=== PATIENT | male | born 1950 | race Hispanic/Latino ===

== ENCOUNTER → 2017-12-21 | Outpatient (CLI) | payer OTHER ==
[~2017-12-21] MED LIST: APIX5TAB PO; ATOR40TA69 PO; BENA40TA3 PO; INSU100V IV; INSU100V12 SQ; ISOS30TA6 PO; LEVO300T8 PO; NITR0.4T50 SL; ONDA4TAB10 PO; PANT40TA PO; RANI-477 PO
== END | disposition home or self-care (01) ==
LOC: RAH 12:55
PROVIDERS: ATTEND Family Medicine
DX: N18.2 Chronic kidney disease, stage 2 (mild) (principal); N40.0 Benign prostatic hyperplasia without lower urinary tract symptoms
CPT/HCPCS: 76770

== ENCOUNTER 2018-03-22 16:53 | Observation (INO) | payer OTHER, MEDICARE ==
[~2018-03-22] VITALS: Ht 180.3 cm; Wt 78.9 kg
[~2018-03-22 16:53] MED LIST changes: -BENA40TA3 PO; +BENA40TA9 PO; -ONDA4TAB10 PO; -RANI-477 PO
[2018-03-22] MEDS ORDERED: CLONIDINE HCL 0.1 MG TABLET PO PRN (17:30)
[2018-03-22] MEDS ORDERED: ONDANSETRON ODT 4 MG TAB SL PRN (17:30)
[2018-03-22] MEDS ORDERED: ONDANSETRON HCL 4 MG/2 ML VIAL IVP PRN (17:30)
[2018-03-22] MEDS: DEXTROSE 5 %-0.45 % NACL 1,000 ML IV SCH (17:30)
[2018-03-22] MEDS ORDERED: FAMOTIDINE 20MG TAB 20 MG TAB ONE (17:31)
[2018-03-22] MEDS ORDERED: DEXTROSE 5 %-0.45 % NACL 1,000 ML IV ONE (17:33)
[2018-03-22 17:48] LABS: CREATININE 1.7 mg/dL (0.5-1.5); POTASSIUM 3.9 mmol/L (3.5-5.1)
[2018-03-22 17:52] LABS: ALBUMIN 4.2 g/dL (3.5-5.0); BILIRUBIN,DIRECT 0.1 mg/dL (0.0-0.3); BILIRUBIN,TOTAL 0.6 mg/dL (0.2-1.0); TOTAL PROTEIN, SERUM 7.9 g/dL (6.0-8.3)
[2018-03-22] MEDS ORDERED: IOHEXOL-350 75 ML VIAL IV ONE (18:09)
[2018-03-22] MEDS ORDERED: DIATR MEGLU/DIATRIZOATE SODIUM 30 ML BOTTLE ONE (18:15)
[2018-03-22 19:19] LABS: BASOPHILS % (AUTO) 0.2 % (0.0-5.0); EOSINOPHILS % (AUTO) 0.4 % (0.0-8.0); HEMATOCRIT 44.1 % (42-54); LYMPHOCYTES % (AUTO) 1.9 % (21.0-51.0); MEAN CORPUSCULAR HEMOGLOBIN 29.5 pg (27.0-33.0); MEAN CORPUSCULAR HGB CONC 33.7 g/dL (32.0-36.0); MEAN CORPUSCULAR VOLUME 87.5 fL (79-99); MONOCYTES % (AUTO) 5.7 % (3.0-13.0); NEUTROPHILS % (AUTO) 91.8 % (40.0-77.0); NUCLEATED RED BLOOD CELLS 0.1 % (0.0-0.19); PLATELET COUNT (AUTO) 237 K/uL (130-400); RED BLOOD CELL COUNT(AUTO) 5.04 MIL/uL (4.50-6.20); RED CELL DISTRIBUTION WIDTH 14.5 % (11.0-15.5)
[2018-03-22] MEDS ORDERED: INSULIN GLARGINE 100 UNITS/ML 10 ML VIAL SQ ONE (20:47)
[2018-03-22] MEDS: FAMOTIDINE 20MG TAB 20 MG TAB PO SCH (21:00)
[2018-03-22 21:15] VITALS: BP 148/84
[2018-03-23] VITALS: BP 122/74
[2018-03-23] MEDS: DEXTROSE 5 %-0.45 % NACL 1,000 ML IV SCH (00:47)
[2018-03-23 04:48] LABS: HEMATOCRIT 36.5 % (42-54); MEAN CORPUSCULAR HEMOGLOBIN 29.4 pg (27.0-33.0); MEAN CORPUSCULAR VOLUME 86.6 fL (79-99); PLATELET COUNT (AUTO) 192 K/uL (130-400); RED BLOOD CELL COUNT(AUTO) 4.22 MIL/uL (4.50-6.20); WHITE BLOOD COUNT (AUTO) 6.6 K/uL (4.8-10.8)
[2018-03-23 05:06] LABS: ALBUMIN 3.3 g/dL (3.5-5.0); BILIRUBIN,DIRECT 0.1 mg/dL (0.0-0.3); BILIRUBIN,TOTAL 0.5 mg/dL (0.2-1.0); CREATININE 1.5 mg/dL (0.5-1.5); POTASSIUM 3.3 mmol/L (3.5-5.1); TOTAL PROTEIN, SERUM 6.3 g/dL (6.0-8.3)
[2018-03-23] MEDS ORDERED: ONDA4TAB10 PO (07:15)
[2018-03-23] MEDS ORDERED: RANI-477 PO (07:15)
[2018-03-23 08:53] VITALS: BP 124/77
[2018-03-23] MEDS ORDERED: INSULIN GLARGINE 100 UNITS/ML 10 ML VIAL SQ SCH (09:00)
[2018-03-23] MEDS ORDERED: PANTOPRAZOLE SODIUM 40 MG TABLET.DR PO SCH (09:00)
[2018-03-23] MEDS: FAMOTIDINE 20MG TAB 20 MG TAB PO SCH (09:00)
[2018-03-23 11:49] VITALS: BP 139/93
[2018-03-23 16:55] VITALS: BP 160/90
== END 2018-03-23 18:19 | disposition home or self-care (01) ==
LOC: EDH 16:53 → EDHIP 17:18 → 4BH 21:15
PROVIDERS: ADMIT Internal Medicine; ATTEND Internal Medicine
DX: E86.0 Dehydration (principal); E11.9 Type 2 diabetes mellitus without complications; E78.5 Hyperlipidemia, unspecified; I10 Essential (primary) hypertension; I25.10 Atherosclerotic heart disease of native coronary artery without angina pectoris; Z85.72 Personal history of non-Hodgkin lymphomas
CPT/HCPCS: 36415 ×2; 74176; 80048 ×2; 80076 ×2; 82150; 82948 ×3; 83690; 85025; 85027; 96372; 99285; G0378 ×25; J1815; J7042; Q9963; Q9967

== ENCOUNTER → 2021-04-30 | Outpatient (CLI) | payer OTHER ==
[~2021-04-30] MED LIST changes: -ATOR40TA69 PO; -ISOS30TA6 PO; +ISOS30TA92 PO; +ONDA4TAB10 PO; +RANI-655 PO
== END | disposition home or self-care (01) ==
LOC: RAH 10:19
PROVIDERS: ATTEND Internal Medicine Gastroenterology
DX: R68.81 Early satiety (principal); R11.0 Nausea; R10.9 Unspecified abdominal pain
CPT/HCPCS: 78264; A9541

== ENCOUNTER 2021-12-24 05:52 | Day surgery (SDC) | payer OTHER ==
[2021-12-22 13:34] LABS: BASOPHILS % (AUTO) 0.4 % (0.0-5.0); EOSINOPHILS % (AUTO) 2.5 % (0.0-8.0); HEMATOCRIT 38.8 % (42-54); LYMPHOCYTES % (AUTO) 12.8 % (21.0-51.0); MEAN CORPUSCULAR HEMOGLOBIN 28.1 pg (27.0-33.0); MEAN CORPUSCULAR VOLUME 87.8 fL (79-99); MONOCYTES % (AUTO) 9.9 % (3.0-13.0); NEUTROPHILS % (AUTO) 74.1 % (40.0-77.0); PLATELET COUNT (AUTO) 298 K/uL (130-400); RED BLOOD CELL COUNT(AUTO) 4.42 MIL/uL (4.50-6.20); RED CELL DISTRIBUTION WIDTH 12.9 % (11.0-15.5); WHITE BLOOD COUNT (AUTO) 7.2 K/uL (4.8-10.8)
[2021-12-22 13:46] LABS: APPEARANCE,URINE Clear (CLEAR); BILIRUBIN,URINE Negative (NEGATIVE); COLOR,URINE Yellow (YELLOW); GLUCOSE, URINE (UA) Negative (NEGATIVE); KETONES,URINE Negative (NEGATIVE); LEUKOCYTE ESTERASE ,URINE Negative (NEGATIVE); NITRATE,URINE Negative (NEGATIVE); OCCULT BLOOD,URINE Negative (NEGATIVE); PROTEIN,URINE Negative (NEGATIVE); UROBILINOGEN,URINE 0.2 mg/dL (0.2-1.0)
[2021-12-22 13:54] LABS: INR 1.01 (0.85-1.15)
[2021-12-22 13:55] LABS: PARTIAL THROMBOPLASTIN TIME 29.1 SEC (26.3-35.5)
[2021-12-22 13:58] LABS: CREATININE 1.4 mg/dL (0.5-1.5); POTASSIUM 4.6 mmol/L (3.5-5.1)
[2021-12-22 14:02] LABS: B-TYPE NATRIURETIC PEPTIDE 59 pg/mL (0-100)
[2021-12-23 13:56] VITALS: BP 135/70
[2021-12-24] VITALS (10 sets, daily range): BP systolic 148–166; BP diastolic 72–87
[~2021-12-24] VITALS: Ht 180.3 cm; Wt 79.9 kg
[~2021-12-24 05:52] MED LIST changes: +AEC81 PO; +AMLO-257 PO; -APIX5TAB PO; -BENA40TA9 PO; +BENA40TA92 PO; +BISA5TAB12 PO; +DULA1.5P SQ; +FAMO20TA8 PO; +FOLI0.8T3 PO; +INSU100I15 SQ; -INSU100V IV; -INSU100V12 SQ; -ISOS30TA92 PO; +LEVO200C2 PO; -LEVO300T8 PO; +METO-391 PO; -NITR0.4T50 SL; -ONDA4TAB10 PO; -PANT40TA PO; -RANI-655 PO; +RANO500T2 PO; +ROSU20TA31 PO
[2021-12-24] MEDS ORDERED: 0.9%NACL 1000ML 1,000 ML IV SCH ×2 (06:00→08:30)
[2021-12-24] MEDS ORDERED: DEXTROSE 50%-WATER 50 ML DISP.SYRIN IV ONE (06:25)
[2021-12-24] MEDS ORDERED: NITROGLYCERIN 50MG VIAL ONE (07:11)
[2021-12-24] MEDS ORDERED: IOHEXOL 350 MG/ML 100ML INFUS..BTL IV ONE (07:11)
[2021-12-24] MEDS ORDERED: IOHEXOL-350 50ML VIAL IV ONE (07:11)
[2021-12-24] MEDS ORDERED: LIDOCAINE HCL 400MG/20ML VIAL ONE (07:11)
[2021-12-24] MEDS ORDERED: BIVALIRUDIN 250 MG/VIAL IV ONE (07:11)
[2021-12-24] MEDS ORDERED: HEPARIN 10,000 UNIT/10ML (1,000 UNIT/ML) VIAL ONE (07:11)
[2021-12-24] MEDS ORDERED: FENTANYL CITRATE PF 50 MCG/1 ML 2ML VIAL ONE (07:45)
[2021-12-24] MEDS ORDERED: NITROGLYCERIN 50MG/D5W 250ML 0 BOT ONE (07:49)
[2021-12-24] MEDS ORDERED: LABETALOL 20MG VIAL IV ONE (07:50)
== END 2021-12-24 13:40 | disposition home or self-care (01) ==
LOC: DAH 05:52
PROVIDERS: ATTEND Internal Medicine Cardiovascular Disease
DX: I25.119 Atherosclerotic heart disease of native coronary artery with unspecified angina pectoris (principal); I25.719 Atherosclerosis of autologous vein coronary artery bypass graft(s) with unspecified angina pectoris; I25.82 Chronic total occlusion of coronary artery; I25.5 Ischemic cardiomyopathy; I10 Essential (primary) hypertension; I25.2 Old myocardial infarction; E11.9 Type 2 diabetes mellitus without complications; E78.5 Hyperlipidemia, unspecified; E03.9 Hypothyroidism, unspecified; Z79.82 Long term (current) use of aspirin; Z98.890 Other specified postprocedural states; Z85.72 Personal history of non-Hodgkin lymphomas; Z86.718 Personal history of other venous thrombosis and embolism; Z95.5 Presence of coronary angioplasty implant and graft; Z79.01 Long term (current) use of anticoagulants
CPT/HCPCS: 36415; 71045; 80048; 81003; 82948 ×3; 83880; 85025; 85610; 85730; 93005; 93459; A4215; A4216; A4221; A4222; A4223 ×3; A4606; A4663; C1760; C1894 ×2; J1644; J3010; J3490 ×3; J7030; Q9965 ×2; Q9967 ×2; 99156; 99157; J0583; J7070

== ENCOUNTER 2023-09-29 23:22 | Observation (INO) | payer OTHER ==
[~2023-09-29] VITALS: Ht 180.3 cm; Wt 82.1 kg
[~2023-09-29 23:22] MED LIST changes: +BISA-151 PO; -BISA5TAB12 PO; -METO-391 PO; -RANO500T2 PO; -ROSU20TA31 PO; +ROSU20TA73 PO
[2023-09-30] VITALS (12 sets, daily range): BP systolic 118–188; BP diastolic 66–115; PULSE 53–69; RESP 18–19; O2SAT 96–98
[2023-09-30] MEDS ORDERED: LABETALOL 20MG VIAL IV ONE
[2023-09-30 00:42] LABS: BASOPHILS # (AUTO) 0.04 K/uL (0.00-0.20); BASOPHILS % (AUTO) 1.2 % (0.0-5.0); EOSINOPHILS # (AUTO) 0.19 K/uL (0.00-0.70); EOSINOPHILS % (AUTO) 5.6 % (0.0-8.0); IMMATURE GRANULOCYTE ABSOLUTE 0.02 K/uL (0-1); LYMPHOCYTES # (AUTO) 0.6 K/uL (1.0-4.8); LYMPHOCYTES % (AUTO) 18.1 % (21.0-51.0); MEAN CORPUSCULAR HEMOGLOBIN 30.1 pg (27.0-33.0); MEAN CORPUSCULAR HGB CONC 34.9 g/dL (32.0-36.0); MEAN CORPUSCULAR VOLUME 86.3 fL (79-99); MONOCYTES # (AUTO) 0.3 K/uL (0.1-1.0); MONOCYTES % (AUTO) 7.6 % (3.0-13.0); NEUTROPHILS # (AUTO) 2.3 K/uL (1.8-7.7); NEUTROPHILS % (AUTO) 66.9 % (40.0-77.0); PLATELET COUNT (AUTO) 143 K/uL (130-400); RED BLOOD CELL COUNT(AUTO) 4.52 MIL/uL (4.50-6.20); RED CELL DISTRIBUTION WIDTH 13.6 % (11.0-15.5); WHITE BLOOD COUNT (AUTO) 3.4 K/uL (4.8-10.8)
[2023-09-30 00:54] LABS: INR < 0.93 (0.85-1.15); PROTHROMBIN TIME 10.5 SEC (9.6-11.6)
[2023-09-30 00:55] LABS: PARTIAL THROMBOPLASTIN TIME 29.1 SEC (26.3-35.5)
[2023-09-30 01:28] LABS: CREATININE 1.5 mg/dL (0.5-1.5); POTASSIUM 3.5 mmol/L (3.5-5.1)
[2023-09-30 01:32] LABS: ALBUMIN 3.7 g/dL (3.5-5.0); BILIRUBIN,TOTAL 0.4 mg/dL (0.2-1.0); TOTAL PROTEIN, SERUM 7.6 g/dL (6.0-8.3)
[2023-09-30 01:50] LABS: ADD UA MICROSCOPIC YES; APPEARANCE,URINE CLEAR (CLEAR); BILIRUBIN,URINE NEGATIVE (NEGATIVE); COLOR,URINE COLORLESS (YELLOW); GLUCOSE, URINE (UA) >=1000 mg/dL (NEGATIVE); KETONES,URINE NEGATIVE (NEGATIVE); LEUKOCYTE ESTERASE ,URINE NEGATIVE Leu/uL (NEGATIVE); NITRATE,URINE NEGATIVE (NEGATIVE); OCCULT BLOOD,URINE NEGATIVE (NEGATIVE); PROTEIN,URINE 30 mg/dL (NEGATIVE); UROBILINOGEN,URINE 0.2 mg/dL (0.2-1.0)
[2023-09-30 01:51] LABS: BACTERIA,URINE RARE /HPF (None Seen); RBC,URINE 0-1 /HPF (0-1); WBC,URINE 0-1 /HPF (0-1)
[2023-09-30] MEDS ORDERED: RANO10005 PO (05:19)
[2023-09-30] MEDS ORDERED: TERB250T89 PO (05:19)
[2023-09-30] MEDS ORDERED: FAMO20TA8 PO (05:19)
[2023-09-30] MEDS ORDERED: FINA5TAB41 PO (05:19)
[2023-09-30] MEDS ORDERED: LEVO112C4 PO (05:19)
[2023-09-30] MEDS ORDERED: METF-444 PO (05:19)
[2023-09-30] MEDS ORDERED: METO-409 PO (05:19)
[2023-09-30] MEDS ORDERED: BACL10TA PO (05:19)
[2023-09-30] MEDS ORDERED: ROSU40TA21 PO (05:19)
[2023-09-30] MEDS ORDERED: BACLOFEN 10 MG TABLET PO PRN (05:30)
[2023-09-30] MEDS ORDERED: CLONIDINE HCL 0.1 MG TABLET PO PRN (06:30)
[2023-09-30] MEDS: LEVOTHYROXINE 112 MCG TABLET PO SCH (06:36)
[2023-09-30] MEDS: TERBINAFINE HCL 250 MG TABLET PO SCH (08:36)
[2023-09-30] MEDS: METOPROLOL SUCCINATE 50 MG TAB.SR.24H PO SCH (08:36)
[2023-09-30] MEDS: ASPIRIN 81 MG EC TAB PO SCH (08:37)
[2023-09-30] MEDS: METFORMIN HCL 500 MG TABLET PO SCH ×2 (08:37→16:49)
[2023-09-30] MEDS: FAMOTIDINE 20MG TAB PO SCH ×2 (08:37→20:23)
[2023-09-30] MEDS: FINASTERIDE 5 MG TABLET PO SCH (08:37)
[2023-09-30] MEDS: RANOLAZINE 500 MG TAB.SR.12H PO SCH ×2 (08:38→20:23)
[2023-09-30] MEDS: (Benazepril HCl 40 MG) PO SCH (09:00)
[2023-09-30] MEDS ORDERED: NON-FORMULARY MEDICATION 1 EACH (Ranolazine (Ranolazine ER) 1,000 MG) PO SCH (09:00)
[2023-09-30] MEDS ORDERED: NON-FORMULARY MEDICATION 1 EACH (Rosuvastatin Calcium 40 MG) PO SCH (09:00)
[2023-09-30 09:09] LABS: BASOPHILS # (AUTO) 0.03 K/uL (0.00-0.20); BASOPHILS % (AUTO) 0.7 % (0.0-5.0); EOSINOPHILS # (AUTO) 0.22 K/uL (0.00-0.70); EOSINOPHILS % (AUTO) 5.2 % (0.0-8.0); HEMATOCRIT 37.1 % (42-54); IMMATURE GRANULOCYTE ABSOLUTE 0.02 K/uL (0-1); LYMPHOCYTES # (AUTO) 0.9 K/uL (1.0-4.8); MEAN CORPUSCULAR HEMOGLOBIN 29.9 pg (27.0-33.0); MEAN CORPUSCULAR HGB CONC 33.7 g/dL (32.0-36.0); MEAN CORPUSCULAR VOLUME 88.8 fL (79-99); MONOCYTES # (AUTO) 0.5 K/uL (0.1-1.0); MONOCYTES % (AUTO) 10.8 % (3.0-13.0); NEUTROPHILS # (AUTO) 2.6 K/uL (1.8-7.7); NEUTROPHILS % (AUTO) 60.8 % (40.0-77.0); PLATELET COUNT (AUTO) 133 K/uL (130-400); RED BLOOD CELL COUNT(AUTO) 4.18 MIL/uL (4.50-6.20); RED CELL DISTRIBUTION WIDTH 13.7 % (11.0-15.5); WHITE BLOOD COUNT (AUTO) 4.3 K/uL (4.8-10.8)
[2023-09-30 09:35] LABS: ALBUMIN 3.3 g/dL (3.5-5.0); BILIRUBIN,TOTAL 0.4 mg/dL (0.2-1.0); CREATININE 1.7 mg/dL (0.5-1.5); POTASSIUM 3.6 mmol/L (3.5-5.1); TOTAL PROTEIN, SERUM 6.8 g/dL (6.0-8.3)
[2023-09-30 10:21] LABS: CHOLESTEROL 318 mg/dL (<200); HDL CHOLESTEROL 47 mg/dL (29-71); LDL DIRECT 155 mg/dL (0-99); TRIGLYCERIDES 530 mg/dL (30-200)
[2023-09-30] MEDS: INSULIN HUMULIN R 100 UNIT/ML 3ML SQ SCH ×3 (11:34→20:24)
[2023-09-30] MEDS ORDERED: ATORVASTATIN 40 MG TABLET PO SCH (21:00)
[2023-10-01 04:41] VITALS: BP 145/73; PULSE 59; RESP 18
[2023-10-01] MEDS: LEVOTHYROXINE 112 MCG TABLET PO SCH (06:13)
[2023-10-01] MEDS: INSULIN HUMULIN R 100 UNIT/ML 3ML SQ SCH ×2 (07:30→12:23)
[2023-10-01 07:52] VITALS: O2SAT 96
[2023-10-01 08:00] VITALS: BP 144/97; PULSE 61; RESP 14
[2023-10-01] MEDS: ASPIRIN 81 MG EC TAB PO SCH (08:40)
[2023-10-01] MEDS: METOPROLOL SUCCINATE 50 MG TAB.SR.24H PO SCH (08:40)
[2023-10-01] MEDS: METFORMIN HCL 500 MG TABLET PO SCH (08:40)
[2023-10-01] MEDS: TERBINAFINE HCL 250 MG TABLET PO SCH (08:40)
[2023-10-01] MEDS: FINASTERIDE 5 MG TABLET PO SCH (08:40)
[2023-10-01] MEDS: FAMOTIDINE 20MG TAB PO SCH (08:41)
[2023-10-01] MEDS: (Benazepril HCl 40 MG) PO SCH (08:41)
[2023-10-01] MEDS: RANOLAZINE 500 MG TAB.SR.12H PO SCH (08:41)
[2023-10-01 12:00] VITALS: BP_SYST 152; BP_SYST 166; BP_DIAS 71; BP_DIAS 95; PULSE 104; PULSE 57; RESP 17; RESP 19
== END 2023-10-01 13:45 | disposition home or self-care (01) ==
LOC: EDH 23:22 → EDHIP 09-30 04:26 → 4AH 09-30 05:12
PROVIDERS: ADMIT Internal Medicine; ATTEND Internal Medicine
DX: R55 Syncope and collapse (principal); S06.9XAA Unspecified intracranial injury with loss of consciousness status unknown, initial encounter; I10 Essential (primary) hypertension; E03.9 Hypothyroidism, unspecified; E78.00 Pure hypercholesterolemia, unspecified; E11.65 Type 2 diabetes mellitus with hyperglycemia; I25.10 Atherosclerotic heart disease of native coronary artery without angina pectoris; Z95.1 Presence of aortocoronary bypass graft; Z91.148 Patient's other noncompliance with medication regimen for other reason; Z79.899 Other long term (current) drug therapy; X58.XXXA Exposure to other specified factors, initial encounter; Y93.89 Activity, other specified; Y92.89 Other specified places as the place of occurrence of the external cause; Y99.8 Other external cause status
CPT/HCPCS: 36415; 70450; 71045; 80053; 80061; 81001; 82306; 82550; 82948; 83036; 83880; 84484; 85025; 85610; 85730; 92610; 93005; 93306; 93356; 96372; 96374; G0378; J1815; J3490

== ENCOUNTER 2024-02-04 18:12 | Emergency (ER) | payer OTHER ==
[~2024-02-04] VITALS: Ht 180.3 cm; Wt 73.5 kg
[~2024-02-04 18:12] MED LIST changes: -AMLO-257 PO; +BACL10TA PO; -BISA-151 PO; -DULA1.5P SQ; +FINA5TAB41 PO; -FOLI0.8T3 PO; -INSU100I15 SQ; +LEVO112C4 PO; -LEVO200C2 PO; +METF-444 PO; +METO-409 PO; +RANO10005 PO; -ROSU20TA73 PO; +ROSU40TA21 PO; +TERB250T89 PO
[2024-02-04 19:16] LABS: HEMATOCRIT 25.7 % (42-54); MEAN CORPUSCULAR HEMOGLOBIN 29.5 pg (27.0-33.0); MEAN CORPUSCULAR HGB CONC 34.2 g/dL (32.0-36.0); MEAN CORPUSCULAR VOLUME 86.2 fL (79-99); PLATELET COUNT (AUTO) 243 K/uL (130-400); RED BLOOD CELL COUNT(AUTO) 2.98 MIL/uL (4.50-6.20); RED CELL DISTRIBUTION WIDTH 13.4 % (11.0-15.5); WHITE BLOOD COUNT (AUTO) 9.3 K/uL (4.8-10.8)
[2024-02-04 19:21] LABS: BASOPHILS # (AUTO) 0.04 K/uL (0.00-0.20); BASOPHILS % (AUTO) 0.4 % (0.0-5.0); EOSINOPHILS # (AUTO) 0.07 K/uL (0.00-0.70); EOSINOPHILS % (AUTO) 0.8 % (0.0-8.0); IMMATURE GRANULOCYTE ABSOLUTE 0.04 K/uL (0-1); LYMPHOCYTES # (AUTO) 0.8 K/uL (1.0-4.8); LYMPHOCYTES % (AUTO) 8.8 % (21.0-51.0); MONOCYTES # (AUTO) 0.9 K/uL (0.1-1.0); MONOCYTES % (AUTO) 9.1 % (3.0-13.0); NEUTROPHILS # (AUTO) 7.5 K/uL (1.8-7.7); NEUTROPHILS % (AUTO) 80.5 % (40.0-77.0)
[2024-02-04 19:26] LABS: CREATININE 1.1 mg/dL (0.5-1.3); POTASSIUM 3.6 mmol/L (3.5-5.1)
[2024-02-04 19:30] LABS: ALBUMIN 3.3 g/dL (3.5-5.0); BILIRUBIN,TOTAL 0.4 mg/dL (0.2-1.0); TOTAL PROTEIN, SERUM 7.6 g/dL (6.0-8.3)
[2024-02-04 20:16] LABS: APPEARANCE,URINE CLEAR (CLEAR); BILIRUBIN,URINE NEGATIVE (NEGATIVE); COLOR,URINE COLORLESS (YELLOW); GLUCOSE, URINE (UA) NEGATIVE (NEGATIVE); KETONES,URINE NEGATIVE (NEGATIVE); LEUKOCYTE ESTERASE ,URINE NEGATIVE Leu/uL (NEGATIVE); NITRATE,URINE NEGATIVE (NEGATIVE); OCCULT BLOOD,URINE NEGATIVE (NEGATIVE); PROTEIN,URINE NEGATIVE (NEGATIVE); UROBILINOGEN,URINE 0.2 mg/dL (0.2-1.0)
[2024-02-04 20:17] LABS: ADD UA MICROSCOPIC NO
[2024-02-04] MEDS: MORPHINE 2 MG SYG IVP STA (21:36)
[2024-02-04] MEDS: ONDANSETRON 4MG INJ IVP STA (21:36)
[2024-02-04 22:37] VITALS: BP 161/82; PULSE 61; RESP 16; O2SAT 98
== END 2024-02-04 22:56 | disposition home or self-care (01) ==
LOC: EDH 18:12
DX: M25.531 Pain in right wrist (principal); M79.89 Other specified soft tissue disorders; I10 Essential (primary) hypertension; E11.9 Type 2 diabetes mellitus without complications; E78.00 Pure hypercholesterolemia, unspecified; E03.9 Hypothyroidism, unspecified; Z79.82 Long term (current) use of aspirin; Z79.899 Other long term (current) drug therapy; Z98.890 Other specified postprocedural states
CPT/HCPCS: 99285; 96374; 96375; 84484; 80053; 83880; 85025; 81003; 36415; 73100; 93005; J2270; J2405

== ENCOUNTER → 2024-02-17 | Outpatient (CLI) | payer OTHER | END | disposition home or self-care (01) | LOC: RAH 13:45 | PROVIDERS: ATTEND Internal Medicine | DX: I34.81 Nonrheumatic mitral (valve) annulus calcification (principal); R60.9 Edema, unspecified | CPT/HCPCS: 93306 ==